=== PATIENT | male | born 1970 | race Two or more races ===

== ENCOUNTER 2022-12-19 12:05 | Emergency (ER) | payer OTHER ==
[~2022-12-19] VITALS: Ht 182.9 cm; Wt 149.7 kg
[2022-12-19] MEDS ORDERED: LEVOTHYROXINE50 MCG PO (13:54)
[2022-12-19] MEDS ORDERED: HYDRALAZINE HCL50 MG PO (13:54)
[2022-12-19] MEDS ORDERED: AMLODIPINE BESY10 MG PO (13:54)
[2022-12-19] MEDS ORDERED: MOUNJARO5 MG/0.5 M SQ (13:54)
[2022-12-19] MEDS ORDERED: METFORMIN HCL1000 M3 PO (13:55)
[2022-12-19] MEDS ORDERED: METOPROLOL SUCC25 MG PO (13:55)
[2022-12-19] MEDS ORDERED: ATORVASTATIN CA40 MG PO (13:55)
[2022-12-19] MEDS ORDERED: LOSARTAN-HCTZ1 EAC1 PO (13:55)
[2022-12-19 14:20] LABS: HEMATOCRIT 39.2 % (39.0-48.0); MEAN CELL VOLUME 81.1 fL (80.0-100.00); MEAN CORPUSCULAR HEMOGLOBIN 26.9 pg (27.00-32.0); MEAN CORPUSCULAR HGB CONC 33.1 g/dl (32.0-36.0); PLATELET COUNT 179 K/uL (150-450); RED BLOOD COUNT 4.83 M/uL (4.00-6.00); RED CELL DISTRIBUTION WIDTH 15.4 % (11.5-14.5)
[2022-12-19 14:41] LABS: CALCIUM 9.1 mg/dL (8.5-10.1); CREATININE SERUM 1.48 mg/dL (0.70-1.30); GFR 50.11; POTASSIUM 3.47 mEq/L (3.5-5.1)
== END 2022-12-19 18:27 | disposition home or self-care (01) ==
LOC: ER 12:06
PROVIDERS: Emergency Medicine
DX: T42.8X1A Poisoning by antiparkinsonism drugs and other central muscle-tone depressants, accidental (unintentional), initial encounter (principal); Y92.89 Other specified places as the place of occurrence of the external cause

== ENCOUNTER 2023-01-05 09:42 | Emergency (ER) | payer OTHER ==
[~2023-01-05] VITALS: Ht 182.9 cm; Wt 149.7 kg
[~2023-01-05 09:42] MED LIST: AMLODIPINE BESY10 MG PO; ATORVASTATIN CA40 MG PO; HYDRALAZINE HCL50 MG PO; LEVOTHYROXINE50 MCG PO; LOSARTAN-HCTZ1 EAC1 PO; METFORMIN HCL1000 M3 PO; METOPROLOL SUCC25 MG PO; MOUNJARO5 MG/0.5 M SQ
[2023-01-05] MEDS ORDERED: TYLENOL ARTHRI650 MG PO (13:42)
== END 2023-01-05 13:47 | disposition home or self-care (01) ==
LOC: ER 09:42
DX: M25.511 Pain in right shoulder (principal); E11.8 Type 2 diabetes mellitus with unspecified complications; Z79.84 Long term (current) use of oral hypoglycemic drugs; I10 Essential (primary) hypertension